=== PATIENT | female | born 1990 | race American Indian/Alaskan Native ===

== ENCOUNTER 2020-12-06 09:24 | Emergency (ER) | payer MEDICAID ==
[2020-12-06 10:29] VITALS: BP 160/72
--- NOTE | 2020-12-06 10:36 | Emergency Department Report ---
ED Female HPI - General Chief complaint: Abdominal Pain Stated complaint: AB PAIN Time Seen by Provider: 12/06/20 10:28 Source: patient Mode of arrival: Ambulatory Limitations: No Limitations - History of Present Illness Initial comments: Patient is a 30-year-old female presents emergency room with complaints of concerns for a vaginal foreign body. She states that 4 days ago she was having sexual intercourse and states that she could not find the condom afterwards. She states that she is concerned that the condom may still be inside the vagina. She states that she has had some mild lower abdominal cramping. She denies any fever, vomiting, diarrhea, dysuria, abnormal vaginal discharge. No past medical history. No allergies to medications. Last menstrual cycle 11/23/2020. Patient states she would like to be prophylactically treated for STDs given that she was unable to find the condom. - Related Data Previous Rx's Medication Instructions Recorded Last Taken Type Doxycycline Hyclate [Doxycycline 100 mg PO BID 7 Days #14 tab 12/06/20 Unknown Rx Hyclate TAB] metroNIDAZOLE [Flagyl] 500 mg PO BID 7 Days #14 tab 12/06/20 Unknown Rx Allergies Allergy/AdvReac Type Severity Reaction Status Date / Time No Known Allergies Allergy Unverified 12/06/20 09:32 ED Review of Systems ROS: Stated complaint: AB PAIN Other details as noted in HPI Comment: All other systems reviewed and negative ED Past Medical Hx - Past Medical History Previous Medical History?: No - Surgical History Past Surgical History?: No - Social History Smoking Status: Never Smoker Substance Use Type: None - Medications Home Medications: Home Medications Medication Instructions Recorded Confirmed Last Taken Type Doxycycline Hyclate [Doxycycline 100 mg PO BID 7 Days #14 tab 12/06/20 Unknown Rx Hyclate TAB] metroNIDAZOLE [Flagyl] 500 mg PO BID 7 Days #14 tab 12/06/20 Unknown Rx ED Physical Exam - General Limitations: No Limitations General appearance: alert, in no apparent distress - Head Head exam: Present: atraumatic, normocephalic - Eye Eye exam: Present: normal appearance - ENT ENT exam: Present: mucous membranes moist - Respiratory Respiratory exam: Absent: respiratory distress, accessory muscle use - GI/Abdominal GI/Abdominal exam: Present: soft. Absent: distended, tenderness, guarding, rebound, rigid - External exam: Absent: erythema, swelling, lesions, lacerations, ecchymosis, bleeding Speculum exam: Present: other (instructor of education: JUAN JOSE Faye, normal appearance of cervix, normal speculum exam, normal bimanual exam, no foreign bodies visualized or palpable). Absent: erythema, cervical discharge, vaginal bleeding, foreign body, tissue, laceration Bi-manual exam: Present: normal bi-manual exam. Absent: cervical motion tendernes, adnexal tenderness, adnexal mass - Neurological Exam Neurological exam: Present: alert, oriented X3 - Psychiatric Psychiatric exam: Present: normal affect, normal mood - Skin Skin exam: Present: warm, dry, intact ED Course Vital Signs 12/06/20 09:32 Temperature 99.3 F Pulse Rate 67 Respiratory 18 Rate Blood Pressure 160/72 O2 Sat by Pulse 100 Oximetry ED Medical Decision Making - Medical Decision Making Patient is a 30-year-old female presents emergency room with complaints of concerns for a vaginal foreign body. She states that 4 days ago she was having sexual intercourse and states that she could not find the condom afterwards. She states that she is concerned that the condom may still be inside the vagina. She states that she has had some mild lower abdominal cramping. She denies any fever, vomiting, diarrhea, dysuria, abnormal vaginal discharge. No past medical history. No allergies to medications. Last menstrual cycle 11/23/2020. Patient states she would like to be prophylactically treated for STDs given that she was unable to find the condom. Vitals are stable. No identified viable foreign body on pelvic/speculum exam, no CMT, no adnexal tenderness or masses, no discharge, no odor chaperoned by JUAN JOSE Faye. Patient given ceftriaxone IM prophylactically to cover for gonorrhea. Given prescription for doxycycline to cover for chlamydia and Flagyl for trichomonas. Advised patient Please take medication as prescribed. Please have any partner tested for STDs as well by the clinic or the health department. Follow-up with your PHLEBOTOMY SUPERVISOR for full STD testing and for reexamination. return to emergency room for any new or worsening symptoms. Critical care attestation.: If time is entered above; I have spent that time in minutes in the direct care of this critically ill patient, excluding procedure time. ED Disposition Clinical Impression: Vaginal discomfort Disposition: HOME / SELF CARE / HOMELESS Is pt being admited?: No Does the pt Need Aspirin: No Condition: Stable Instructions: Abdominal Pain (ED) Additional Instructions: Please take medication as prescribed. Please have any partner tested for STDs as well by the clinic or the health department. Follow-up with your PHLEBOTOMY SUPERVISOR for full STD testing and for reexamination. return to emergency room for any new or worsening symptoms. Prescriptions: Doxycycline Hyclate [Doxycycline Hyclate TAB] 100 mg PO BID 7 Days #14 tab metroNIDAZOLE [Flagyl] 500 mg PO BID 7 Days #14 tab Referrals: your, cheese production supervisor [Other] - 2-3 Days Forms: Work/School Release Form(ED) Time of Disposition: 10:47 Print Language: ARABIC
[2020-12-06] MEDS ORDERED: LIDOCAINE-MPF (1%) 10 MG/1 ML VIAL 5 ML INFILTRATI ONE (10:49)
== END 2020-12-06 18:20 | disposition home or self-care (01) ==
LOC: ED 09:24
DX: N89.8 Other specified noninflammatory disorders of vagina (principal)
CPT/HCPCS: 96372; 99283

== ENCOUNTER 2021-04-04 05:19 | Emergency (ER) | payer BC, MEDICAID ==
[2021-04-04 05:24] VITALS: BP 127/80
[2021-04-04 05:59] LABS: Basophils % (Auto) 0.5 % (0.0-1.8); Eosinophils # (Auto) 0.2 K/mm3 (0.0-0.4); Eosinophils % (Auto) 2.3 % (0.0-4.3); Hematocrit 40.3 % (30.3-42.9); Hemoglobin 12.9 gm/dl (10.1-14.3); Lymphocytes # (Auto) 3.1 K/mm3 (1.2-5.4); Lymphocytes % (Auto) 34.7 % (13.4-35.0); Mean Corpuscular HGB Conc 32 % (30-34); Mean Corpuscular Volume 92 fl (79-97); Monocytes # (Auto) 0.9 K/mm3 (0.0-0.8); Monocytes % (Auto) 9.8 % (0.0-7.3); Platelet Count 305 K/mm3 (140-440)
[2021-04-04 06:14] LABS: Alanine Aminotransferase 20 units/L (7-56); Albumin 4.1 g/dL (3.9-5); BUN/Creatinine Ratio 13; Blood Urea Nitrogen 10 mg/dL (7-17); Calcium 9.1 mg/dL (8.4-10.2); Hemolysis Index 4
[2021-04-04 07:03] LABS: Bilirubin,Urine NEG (Negative); Blood,Urine NEG (Negative); Color,Urine Yellow (Yellow); Mucus,Urine FEW /HPF; Protein,Urine <15 mg/dL mg/dL (Negative); Urobilinogen,Urine < 2.0 mg/dL (<2.0)
== END 2021-04-04 07:30 | disposition left against medical advice (07) ==
LOC: ED 05:19
DX: R10.9 Unspecified abdominal pain (principal); Z53.21 Procedure and treatment not carried out due to patient leaving prior to being seen by health care provider
CPT/HCPCS: 36415; 80053; 81001; 84703; 85025; 87086

== ENCOUNTER 2021-04-24 07:37 | Emergency (ER) | payer BC, MEDICAID ==
[2021-04-24 07:44] VITALS: BP 126/74
[2021-04-24] MEDS ORDERED: ONDANSETRON 4 MG ODT TAB PO ONE (07:57)
[2021-04-24] MEDS ORDERED: ACETAMINOPHEN 325 MG TAB PO ONE (07:57)
--- NOTE | 2021-04-24 07:57 | Emergency Department Report ---
ED Abdominal Pain HPI - General Chief Complaint: Abdominal Pain Stated Complaint: WANTS TEST PUI?: No Time Seen by Provider: 04/24/21 07:47 Source: patient Mode of arrival: Ambulatory Limitations: No Limitations - History of Present Illness Initial Comments: 31-year-old female presents to the ER today with complaints of abdominal pain concern for possible . Patient states that for the past 2 to 3 weeks has been having intermittent abdominal pain. She states that the pain is mainly lower abdominal area but sometimes she feels it in her upper abdominal area. She described as a sharp pain and she has also had intermittent nausea episodes with food. She states that her last menstrual cycle was March 20, 2021. She has not had any menstrual cycle for April as yet. She has taken about 4 home test and negative. She states that her abdominal symptoms feel similar to when she found out she was 4 years ago. She denies any UTI symptoms. She states that the vaginal discharge she is having is typical of her usual discharge, not anything unusual and she has had the same sexual partner and is not concerned for any STD. She denies any fever or chills. MD Complaint: abdominal pain -: week(s) (2-3) - Related Data Previous Rx's Medication Instructions Recorded Last Taken Type Doxycycline Hyclate [Doxycycline 100 mg PO BID 7 Days #14 tab 12/06/20 Unknown Rx Hyclate TAB] metroNIDAZOLE [Flagyl] 500 mg PO BID 7 Days #14 tab 12/06/20 Unknown Rx Allergies Allergy/AdvReac Type Severity Reaction Status Date / Time No Known Allergies Allergy Unverified 12/06/20 09:32 ED Review of Systems ROS: Stated complaint: WANTS TEST Other details as noted in HPI Comment: All other systems reviewed and negative Constitutional: denies: chills, fever Eyes: denies: eye pain, eye discharge, vision change ENT: denies: ear pain, throat pain Respiratory: denies: cough, shortness of breath, wheezing Cardiovascular: denies: chest pain, palpitations Gastrointestinal: abdominal pain, nausea. denies: vomiting, diarrhea, cons tipation, hematemesis, melena, hematochezia Genitourinary: denies: urgency, dysuria, frequency, hematuria, discharge, abnormal menses, dyspareunia Musculoskeletal: denies: back pain, joint swelling, arthralgia, myalgia Skin: denies: rash, lesions, change in color, change in hair/nails, pruritus Neurological: denies: headache, weakness, numbness, paresthesias, confusion, abnormal gait, vertigo Psychiatric: denies: anxiety, depression, auditory hallucinations, visual hallu cinations, homicidal thoughts, suicidal thoughts Hematological/Lymphatic: denies: easy bleeding, easy bruising, swollen glands ED Past Medical Hx - Past Medical History Previous Medical History?: No - Surgical History Past Surgical History?: No - Social History Smoking Status: Never Smoker Substance Use Type: None - Medications Home Medications: Home Medications Medication Instructions Recorded Confirmed Last Taken Type Doxycycline Hyclate [Doxycycline 100 mg PO BID 7 Days #14 tab 12/06/20 Unknown Rx Hyclate TAB] metroNIDAZOLE [Flagyl] 500 mg PO BID 7 Days #14 tab 12/06/20 Unknown Rx ED Physical Exam - General Limitations: No Limitations General appearance: alert, in no apparent distress - Head Head exam: Present: atraumatic, normocephalic, normal inspection - Eye Eye exam: Present: normal appearance, PERRL, EOMI Pupils: Present: normal accommodation - Neck Neck exam: Present: normal inspection, full ROM. Absent: meningismus - Respiratory Respiratory exam: Present: normal lung sounds bilaterally. Absent: respiratory distress, wheezes, rales, rhonchi, stridor - Cardiovascular Cardiovascular Exam: Present: regular rate, normal rhythm, normal heart sounds - GI/Abdominal GI/Abdominal exam: Present: soft. Absent: distended, tenderness, guarding, rebound - Neurological Exam Neurological exam: Present: alert, oriented X3, CN II-XII intact, normal gait - Psychiatric Psychiatric exam: Present: normal affect, normal mood - Skin Skin exam: Present: intact ED Course Vital Signs 04/24/21 07:42 Temperature 97.8 F Pulse Rate 74 Respiratory 16 Rate Blood Pressure 126/74 [Left] O2 Sat by Pulse 98 Oximetry ED Medical Decision Making - Lab Data Result diagrams: 04/24/21 08:14 04/24/21 08:14 - Medical Decision Making 0939: Labs reviewed and unremarkable including negative hCG. She is currently s itting comfortably on the recliner playing on her phone. She is not toxic, ill- appearing or any significant distress. Abdominal exam is unremarkable. Discussed lab results including negative hCG results with patient. Recommend that she follows up with W[employer]OWS SYSTEMS ADMIN for further evaluation of missed menstrual cycle. Her history, current condition and physical exam and work-up does not suggest acute appendicitis, bowel obstruction, PID, tubo-ovarian abscess, or any other emergent conditions warranting additional testing, emergent specialist consult or admission at this time. Patient expressed understanding of all instructions and agree with plan. Patient stable at time of discharge Critical care attestation.: If time is entered above; I have spent that time in minutes in the direct care of this critically ill patient, excluding procedure time. ED Disposition Clinical Impression: Abdominal pain, Late period Disposition: 01 HOME / SELF CARE / HOMELESS Is pt being admited?: No Does the pt Need Aspirin: No Condition: Stable Instructions: Menstruation, Abdominal Pain, Adult, Abdominal Pain (ED) Additional Instructions: I recommend taking Tylenol and ibuprofen for any pain. Your serum hCG today is negative. I do recommend follow-up with your [employer] ADMIN for further evaluation of your missed period, especially if it does not start in another 3- 5 days. Return to the ER if his symptoms worsens or changes in any way. Referrals: PRIMARY CARE [Primary Care Provider] - 3-5 Days Forms: Work/School Release Form(ED) Time of Disposition: 09:35
[2021-04-24 08:35] LABS: Bacteria,Urine 1+ /HPF (Negative); Bilirubin,Urine NEG (Negative); Blood,Urine NEG (Negative); Color,Urine Yellow (Yellow); Mucus,Urine FEW /HPF; Protein,Urine <15 mg/dL mg/dL (Negative); Urobilinogen,Urine < 2.0 mg/dL (<2.0)
[2021-04-24 08:59] LABS: Basophils % (Auto) 0.5 % (0.0-1.8); Eosinophils # (Auto) 0.2 K/mm3 (0.0-0.4); Eosinophils % (Auto) 2.4 % (0.0-4.3); Hematocrit 40.6 % (30.3-42.9); Hemoglobin 13.6 gm/dl (10.1-14.3); Lymphocytes # (Auto) 2.9 K/mm3 (1.2-5.4); Lymphocytes % (Auto) 39.3 % (13.4-35.0); Mean Corpuscular HGB Conc 33 % (30-34); Mean Corpuscular Volume 89 fl (79-97); Monocytes # (Auto) 0.5 K/mm3 (0.0-0.8); Monocytes % (Auto) 6.6 % (0.0-7.3); Platelet Count 304 K/mm3 (140-440); Red Blood Count 4.57 M/mm3 (3.65-5.03)
[2021-04-24 09:21] LABS: Alanine Aminotransferase 19 units/L (7-56); Albumin 4.2 g/dL (3.9-5); Blood Urea Nitrogen 11 mg/dL (7-17); Calcium 9.1 mg/dL (8.4-10.2); Hemolysis Index 8
[2021-04-24 09:29] LABS: BUN/Creatinine Ratio 16
== END 2021-04-24 09:48 | disposition home or self-care (01) ==
LOC: ED 07:37
DX: R10.9 Unspecified abdominal pain (principal); N92.6 Irregular menstruation, unspecified
CPT/HCPCS: 36415; 80053; 81001; 84703; 85025; 99283; J3490; Q0162